=== PATIENT | female | born 1955 | race Caucasian/White ===

== ENCOUNTER → 2018-04-13 15:50 | Outpatient (CLI) | payer OTHER, SELFPAY ==
--- NOTE | 2018-04-13 16:00 | RAD_ITS ---
STUDY: X-RAY CHEST REASON FOR EXAM: Female, 62 years old. Shortness breath TECHNIQUE: Frontal and lateral views of the chest COMPARISON: None. FINDINGS: There are diffusely increased interstitial markings noted throughout the lungs which are of uncertain chronicity. There is airspace opacity in the right mid to lower lung field which is likely infectious in etiology. There are no pleural effusions. There is no pneumothorax. The heart is normal in size. The visualized osseous structures are within normal limits. RAD/Chest PA and Lateral IMPRESSION: Airspace opacity right mid to lower lung field which is likely infectious in etiology. Diffusely increased interstitial markings which are of uncertain chronicity. Electronically Signed: Cezar Zamora, at 16:56 EDT Tel , Service support ,
[2018-04-13 17:20] LABS: Absolute Lymphocyte Count 1.28 X10^3/ul (0.83-4.51); Absolute Neutrophil Count 3.4 X10^3/uL (2.0-7.7); Basophil# 0.02 X10^3/uL; Basophil% 0.4 % (0-1); Eosinophil# 0.16 X10^3/uL; Eosinophils% 3.1 % (0-5); Hematocrit 35.5 % (37-47); Hemoglobin 11.4 g/dl (12.0-15.0); Lymphocyte # 1.28 X10^3/ul (4.0); Lymphocyte % 24.8 % (19-41); Mean Corp Hgb Conc 32.1 g/gl (32-36); Mean Corpuscular Hgb 30.2 pg (27.0-32.0); Mean Corpuscular Volume 94.2 fL (81-99); Mean Platelet Vol. 10.8 fl (6.2-12.0); Monocyte# 0.29 X10^3/uL; Monocyte% 5.6 % (0-10); Neutrophil % 65.9 % (47-70); Platelet Count 307 K/mm3 (150-450); RBC Distribution Width CV 13.2 % (11.6-14.6); RBC Distribution Width SD 43.4 fl (35.1-43.9); Red Blood Count 3.77 M/mm3 (4.2-5.4); White Blood Count 5.2 K/mm3 (4.4-11.0)
[2018-04-13 17:25] LABS: POSITIVE COUNT NO; POSITIVE DIFFERENTIAL NO; POSITIVE MORPHOLOGY NO
[2018-04-13 17:33] LABS: BNP,B-Type NATRIURETIC PEPTIDE 1008.8 pg/mL (0-100)
[2018-04-13 17:54] LABS: BUN 9 mg/dL (7-18); Glucose 106 mg/dL (74-106)
[2018-04-13 17:55] LABS: Anion Gap 7 (5-15); BUN/Creat Ratio 12.9 RATIO (10-20); Calcium,Total 9.5 mg/dL (8.5-10.1); Chloride 107 mmol/L (98-107); EST Glomerular Filtration Rate 90 mL/min (>60); Est Glom Filt Rate - Afr Amer 109 mL/min (>60); Magnesium 1.9 mg/dL (1.6-2.6); Potassium 3.6 mmol/L (3.5-5.1); Sodium Level 141 mmol/L (136-145); T4 Total, Thyroxin 11.8 ug/dL (4.8-13.9); Thyroid Stim Hormone (TSH) 1.23 uIU/mL (0.358-3.74)
== END ==
PROVIDERS: Referring Provider Internal Medicine Cardiovascular Disease; Visit Provider Internal Medicine Cardiovascular Disease
DX: R06.02 Shortness of breath (principal); I05.9 Rheumatic mitral valve disease, unspecified
CPT/HCPCS: 36415; 71046; 80048; 83735; 83880; 84436; 84443; 85025

== ENCOUNTER → 2018-04-28 13:34 | Outpatient (CLI) | payer OTHER, SELFPAY ==
--- NOTE | 2018-04-28 13:38 | ECHOD_ITS ---
Reason For Study: Murmur Procedure This was a 2D Doppler, Color Flow transthoracic echocardiogram. Exam performed in department. Left Ventricle Normal LV size. The estimated ejection fraction is 30 %. Moderately severe global left ventricular systolic dysfunction. Stage 3 diastolic dysfunction. There is moderate to severe global hypokinesis of the left ventricle. Right Ventricle Normal RV size. Normal systolic function. Atria The left atrium is moderately enlarged. Normal right atrium. Mitral Valve Bileaflet diffuse mitral valve thickening. Mild (1+) eccentric mitral valve insufficiency. Tricuspid Valve Normal tricuspid valve. Mild (1+) tricuspid valve insufficiency. Pulmonary artery systolic pressure is 56 mmHg. Moderate pulmonary hypertension. Aortic Valve Trisinus/trileaflet aortic valve. Moderate focal aortic valve calcification. Peak aortic valve gradient 60 mmHg. Mean aortic valve gradient 32 mmHg. Moderately severe . Calculated aortic valve area (continuity equation) is 1.0 cm2. Mild (1+) eccentric aortic valve insufficiency. Pulmonic Valve Normal pulmonic valve. Great Vessels Normal aortic root. The pulmonary artery is normal size. Normal inferior vena cava. Pericardium/Pleural No pericardial effusion. MMode/2D Measurements & Calculations LVIDd: 6.2 cm IVSd: 1.8 cm LVOT diam: 2.0 cm LVIDs: 6.1 cm LVPWd: 1.4 cm LVOT area: 3.2 cm2 RVDd: 4.1 cm FS: 0.62 % Ao root diam: 3.7 cm LAV(MOD-bp): 88.8 ml LVAd ap4: 39.4 cm2 LA dimension: 4.4 cm LAV(MOD-bp) Indexed: 43.0 ml/m2 EDV(MOD-sp4): 167.9 ml LAV(MOD-sp2): 88.5 ml EDV(sp4-el): 169.7 ml LAV(MOD-sp4): 90.1 ml LVAs ap4: 32.7 cm2 ESV(MOD-sp4): 121.8 ml ESV(sp4-el): 122.8 ml EF(MOD-sp4): 27.5 % EF(sp4-el): 27.7 % SV(MOD-sp4): 46.1 ml SV(sp4-el): 46.9 ml LA A4 area: 26.0 cm2 RA A4 area: 15.7 cm2 Time Measurements MV dec time: 0.15 sec Doppler Measurements & Calculations MV E max alok: 101.4 cm/sec Lat Peak E' Alok: 3.8 cm/sec MV V2 max: 125.3 cm/sec MV A max alok: 74.6 cm/sec E/E' lat: 26.8 MV max P.3 mmHg MV E/A: 1.4 MV V2 mean: 71.4 cm/sec MV mean P.4 mmHg MV V2 VTI: 21.6 cm MVA(VTI): 4.0 cm2 MV P1/2t max alok: 125.3 cm/sec Ao V2 max: 389.9 cm/sec AI max alok: 336.5 cm/sec MV P1/2t: 46.3 msec Ao max P.9 mmHg AI max P.8 mmHg MV dec slope: 792.4 cm/sec2 Ao V2 mean: 263.8 cm/sec AI dec slope: 519.9 cm/sec2 MVA(P1/2t): 4.7 cm2 Ao mean P.3 mmHg AI P1/2t: 189.5 msec Ao V2 VTI: 85.5 cm IRAJ(I,D): 1.0 cm2 IRAJ(V,D): 0.97 cm2 LV V1 max: 117.9 cm/sec MR max alok: 456.3 cm/sec SV(LVOT): 86.3 ml LV V1 max P.6 mmHg MR max P.3 mmHg LV V1 mean P.8 mmHg LV V1 mean: 75.9 cm/sec LV V1 VTI: 27.0 cm PA V2 max: 71.0 cm/sec TR max alok: 361.7 cm/sec TR max P.3 mmHg Interpretation Summary Normal LV size. The estimated ejection fraction is 30 %. Moderately severe global left ventricular systolic dysfunction. Stage 3 diastolic dysfunction. The left atrium is moderately enlarged. Pulmonary artery systolic pressure is 56 mmHg. Moderate pulmonary hypertension. Mean aortic valve gradient 32 mmHg. Moderately severe Calculated aortic valve area (continuity equation) is 1.0 cm2. Ordering Physician: Toney White Referring Physician: Toney White Performed By: Wil Littlejohn [facility]
--- NOTE | 2018-04-28 14:33 | RAD_ITS ---
STUDY: X-RAY CHEST REASON FOR EXAM: Female, 62 years old. Chest pain/pressure TECHNIQUE: PA and lateral views of the chest. COMPARISON: 04/13/2018 FINDINGS: Lungs are expanded with chronic interstitial changes, previously described patchy opacifications in both lung hutchinson have mildly improved but not yet resolved. Continued follow-up recommended to assure complete resolution. There is no demonstrated pleural abnormality. Normal size heart. Normal mediastinum and estephanie. Normal visualized pulmonary arteries. Normal visualized aortic arch and descending thoracic aorta. Normal visualized thoracic spine. Normal visualized ribs, clavicles, and shoulders. There is no demonstrated abnormality of the visualized soft tissue structures of the upper abdomen. RAD/Chest PA and Lateral IMPRESSION: Partial but not yet complete resolution of previously described patchy opacifications in both lung hutchinson. Follow-up recommended to assure complete resolution Electronically Signed: Prasanth Carlos MD at 19:40 EDT , Service support ,
== END ==
PROVIDERS: Referring Provider Internal Medicine Cardiovascular Disease; Visit Provider Internal Medicine Cardiovascular Disease
DX: I35.9 Nonrheumatic aortic valve disorder, unspecified (principal); I05.9 Rheumatic mitral valve disease, unspecified; R06.02 Shortness of breath
CPT/HCPCS: 71046; 93306

== ENCOUNTER → 2018-05-05 11:54 | Outpatient (CLI) | payer OTHER, SELFPAY ==
[2018-05-05 13:44] LABS: Anion Gap 8 (5-15); BUN 17 mg/dL (7-18); BUN/Creat Ratio 20.5 RATIO (10-20); Calcium,Total 9.3 mg/dL (8.5-10.1); Chloride 106 mmol/L (98-107); Creatinine, Serum 0.83 mg/dL (0.55-1.02); EST Glomerular Filtration Rate 74 mL/min (>60); Est Glom Filt Rate - Afr Amer 89 mL/min (>60); Glucose 93 mg/dL (74-106); Potassium 3.9 mmol/L (3.5-5.1); Sodium Level 141 mmol/L (136-145)
== END ==
PROVIDERS: Referring Provider Internal Medicine Cardiovascular Disease; Visit Provider Internal Medicine Cardiovascular Disease
DX: I50.40 Unspecified combined systolic (congestive) and diastolic (congestive) heart failure (principal); I35.0 Nonrheumatic aortic (valve) stenosis
CPT/HCPCS: 36415; 80048

== ENCOUNTER 2018-05-09 08:51 | Day surgery (SDC) | payer OTHER, SELFPAY ==
[2018-05-06 09:46] VITALS: BMI 31.3
[2018-05-09 10:56] LABS: Blood Gas Specimen Type VEN; VBG BASE EXCESS -1 mmol/L (-1.0-3.5); VBG Bicarbonate 23 mmol/L (22-26); VBG Oxygen Content 24 mmol/L (23-33); VBG PO2 33 mmHg (25-40); VBG SO2 66 % (50-70); VBG pCO2 34.5 mmHg (41-51); VBG pH 7.43 (7.32-7.42)
[2018-05-09 10:56] LABS: Base Excess -3 mmol/L (-2 to +2); Bicarbonate 21.5 mmol/L (22-26); Blood Gas Specimen Type ART; PO2 62 mmHG (75-100); SO2 92 % (95-99); Total Carbon Dioxide 23 mmol/L; pCO2 32.2 mmHg (35-45); pH 7.43 (7.35-7.45)
[2018-05-09 10:56] LABS: Blood Gas Specimen Type VEN; VBG BASE EXCESS 0 mmol/L (-1.0-3.5); VBG Bicarbonate 24 mmol/L (22-26); VBG Oxygen Content 25 mmol/L (23-33); VBG PO2 33 mmHg (25-40); VBG SO2 65 % (50-70); VBG pCO2 35.8 mmHg (41-51); VBG pH 7.44 (7.32-7.42)
--- NOTE | 2018-05-09 10:59 | CL.D_ITS ---
Patient Name: TONIO PONCE Study Date: 05/09/2018 Performing: Toney White MD Ht: 68.11 inches 173 cm : 1955 Wt: 205.03 lbs 93 kg Age: 62 Gender: female BSA: 2.07 PROCEDURE(S) PERFORMED [id number]/LHC/COR/LV CLINICAL PROFILE AND INDICATIONS Indications: Valvular Disease Heart Failure: NYHA Class: 2 Stress/Imaging Stress/Image Study Performed: No CAD Presentations: Symptom unlikely to be ischemic. CONCLUSIONS Aortic valve peak to peak gradient is 90 mmHg. Mean grdaient of 50 mmhg; IRAJ 0.84cm^: moderate pulmon dee hypertension RECOMMENDATIONS Surgery consult for Valve Replacement surgery DESCRIPTION OF PROCEDURE The patient arrived to the procedure lab. The risks and benefits of the procedure as well as a full d escription of our services here and current unavailability of surgical backup were fully explained to the patient and/or their significant other prior to the catheterization. The Timeout was completed, verifying the correct patient and procedure. The patient's procedural site was prepped and draped in the usual fashion. Local anesthetic was given subcutaneously to right radial region with Lidocaine 2% . Using a modified Seldinger technique, arterial access was obtained via the right radial artery, a 6 Fr sheath was inserted. Venous access was obtained via the left brachiocephalic vein, a 7Fr sheath wa s inserted. A 7Fr thermal dilution catheter was inserted and right heart pressures were recorded, it was then advanced to PA position for cardiac outputs. Thermal dilution cardiac outputs were then rosa elena rded. The Thermal dilution catheter was then removed. Left Coronary Artery selective angiography was performed in multiple views using a 5 Fr. 4.0 Cleveland catheter. Right Coronary Artery s elective angiography was then performed in multiple views using a 5 Fr. 4.0 [place] catheter. Left Vent riculography was performed in MCCALLUM projection using a 5 Fr. Pigtail catheter. LV to AO pullback pressu res were then recorded.The arterial sheath was pulled and a TR Band was applied for hemostasis 15 cc' s of air in band. The venous sheath was then pulled and manual compression applied until hemostasis a chieved CORONARY ANGIOGRAPHY DOMINANCE: Right Dominant LEFT HEART ASSESSMENT Left Ventricular Ejection Fraction: by LV Gram 35 % Depressed Left Ventricular systolic function RIGHT HEART ASSESSMENT Thermal CO: 6.21 Thermal CI: 3 Bertha CO: 6.83 Bertha CI: 3.3 PW: 24/32 21 PA: 51/22 34 RV: 50/-1 6 RA: 7/2 2 PVR: 167 SVR: 928 Aortic Valve Area: 0.84 Aortic Valve Index: 0.41 Aortic Valve Mean Gradient: 50.9 Right Heart pressures - elevated Aortic valve peak to peak gradient is 90 mmHg. LEFT MAIN: Angiographically normal LEFT ANTERIOR DECENDING ARTERY: Angiographically normal CIRCUMFLEX ARTERY: Angiographically normal RIGHT CORONARY ARTERY: Angiographically normal VALVE FINDINGS: Aortic Valve Calcification - severe AORTIC ROOT: Dilated COMPLICATIONS No Complications PROCEDURE MEDICATIONS Versed 1 mg IV Fentanyl 50 mcg IV Oxygen: 2 L/min via nasal cannula Lasix 20 mg IV 05/09/2018 10:50:54 SUMMARY OF HEMODYNAMIC DATA Time AIR REST ECG 09:17:02 ECG 09:45:26 PA 51/22 (34) PA 10:19:31 PW 24/32 (21) PV 10:19:58 PA 54/19 (35) 10:23:51 RV 50/-1, 6 10:24:09 RA 7/2 (2) SV 10:24:21 AO 97/56 (74) SA 10:28:33 LV 191/8, 33 10:36:38 LV 180/7, 30 10:36:45 LV 186/17, 31 10:38:19 LV 185/17, 28 10:38:25 LVp 185/14, 36 10:38:44 AOp 99/55 (74) 10:38:49 RM AIR REST 10:52:50 Valve Area (c P-P/ms Time AIR REST Aortic 0.84 50.9 mn/338 ms86.0 pk/338 ms 10:38:44 Aortic 0.84 50.9 mn/338 ms86.0 pk/338 ms 10:38:44 Type SV CO (l/m) CI (l/m/ HR Time AIR REST Thermal 345.00 6.21 3.00 18 09:17:02 Bertha 379.40 6.83 3.30 18 09:17:02 Label % O2 Pres/Loc Time AIR REST AO 92 PV 10:39:13 RA 66 SV 10:39:21 PA 65 PA 10:39:28 Signed By Toney White MD On 05/09/2018 10:59:04 Toney White MD
== END 2018-05-09 14:20 | disposition home or self-care (01) ==
PROVIDERS: Referring Provider Internal Medicine Cardiovascular Disease; Visit Provider Internal Medicine Cardiovascular Disease
DX: I35.0 Nonrheumatic aortic (valve) stenosis (principal); I50.40 Unspecified combined systolic (congestive) and diastolic (congestive) heart failure; I43 Cardiomyopathy in diseases classified elsewhere; I34.0 Nonrheumatic mitral (valve) insufficiency; I27.21 Secondary pulmonary arterial hypertension; I49.3 Ventricular premature depolarization; E66.9 Obesity, unspecified; Z68.31 Body mass index [BMI] 31.0-31.9, adult
CPT/HCPCS: 82803; 93460; 99152; 99153; J7040; Q9967; C1751; C1769; C1894; J1940

== ENCOUNTER → 2018-06-02 09:15 | Outpatient (CLI) | payer OTHER, SELFPAY ==
[2018-06-02 10:06] LABS: Anion Gap 8 (5-15); BUN 13 mg/dL (7-18); BUN/Creat Ratio 15.1 RATIO (10-20); Calcium,Total 9.2 mg/dL (8.5-10.1); Chloride 108 mmol/L (98-107); Creatinine, Serum 0.86 mg/dL (0.55-1.02); EST Glomerular Filtration Rate 70 mL/min (>60); Est Glom Filt Rate - Afr Amer 85 mL/min (>60); Glucose 91 mg/dL (74-106); Potassium 3.9 mmol/L (3.5-5.1); Sodium Level 143 mmol/L (136-145)
== END ==
DX: I50.42 Chronic combined systolic (congestive) and diastolic (congestive) heart failure (principal); I35.0 Nonrheumatic aortic (valve) stenosis
CPT/HCPCS: 36415; 80048

== ENCOUNTER → 2018-10-27 07:07 | Outpatient (CLI) | payer OTHER, SELFPAY ==
[2018-08-22 10:26] VITALS: BMI 29.0
--- NOTE | 2018-10-27 08:28 | CT_ITS ---
STUDY: CT CHEST WITHOUT CONTRAST REASON FOR EXAM: Female, 63 years old. Abnormal chest x-ray, bilateral patchy opacifications RADIATION DOSAGE (If Supplied By Facility): CTDIvol = ( 8.86 ) mGy, DLP = ( 347.66 ) mGycm TECHNIQUE: Transaxial imaging was performed without the administration of intravenous contrast material. Individualized dose optimization techniques were used for this CT. COMPARISON: Chest x-ray 04/28/2018 FINDINGS: Median sternotomy wires. Small hiatal hernia. Diffuse pulmonary fibrosis, most extensive in the lung peripheries. No acute alveolar disease. No pulmonary nodules. There is no demonstrated pleural abnormality. Normal heart and pericardium. Normal mediastinum. Normal hilar regions. Normal unenhanced pulmonary arteries. Normal aorta arch and descending thoracic aorta. Prosthetic aortic valve. Postoperative changes of the ascending thoracic aorta. Normal osseous structures. There is no demonstrated abnormality of the visualized upper abdomen. CT/Chest without Contrast IMPRESSION: Diffuse pulmonary fibrosis, most extensive in the lung peripheries. No acute alveolar disease. No pulmonary nodules. Small hiatal hernia. Electronically Signed: Vinay Alvarez MD at 16:55 EDT Tel , Service support ,
--- NOTE | 2018-10-27 14:45 | PFTCOMP ---
COMPLETE PULMONARY FUNCTION TEST INTERPRETATION Brief HPI: Patient is a 63 year old female, currently under the care of myself, who presents to [facility] for complete pulmonary function tests secondary to diagnosis of abnormal chest imaging. Respiratory therapist reports good effort and reproducible results. Interpretation: Forced expiration spirometry shows no large airways obstructive ventilatory defect with an FEV1 of 116% predicted. There is no significant bronchodilator response by strict ATS criteria. Spirograms are of good quality and plateau normally. The respiratory flow volume loop shows a normal pattern. Lung volumes by body plethysmography show a normal total lung capacity at 5.4 L, 95% predicted. All other lung volumes are within normal limits. Diffusion capacity by carbon monoxide is decreased at 44% predicted. The airway resistance is normal. No previous pulmonary function tests were available for review. Impression: Isolated reduction diffusion capacity consistent with a pulmonary vascular disorder.
== END ==
PROVIDERS: Referring Provider Internal Medicine Critical Care Medicine; Visit Provider Internal Medicine Critical Care Medicine
DX: R93.89 Abnormal findings on diagnostic imaging of other specified body structures (principal)
CPT/HCPCS: 71250; 94060; 94726; 94729

== ENCOUNTER → 2018-10-31 09:02 | Outpatient (CLI) | payer OTHER, SELFPAY ==
[2018-08-22 10:26] VITALS: BMI 29.0
[2018-10-31 09:46] VITALS: PULSE 62; PULSE 64; PULSE 68; PULSE 71; PULSE 78; PULSE 79; O2SAT 91; O2SAT 92; O2SAT 93; O2SAT 95; O2SAT 96; O2SAT 99
--- NOTE | 2018-10-31 12:10 | PCM.PSN.6M ---
PSN 6 Minute Walk Test - 6 Minute Walk Test 6 Minute Walk Test: 6 Minute Walk Test PSN:6-Minute Walk Test Start: 10/31/18 09:44 Freq: Status: Active Protocol: RESP.6MINW Document 10/31/18 09:46 ANGEL (Rec: 10/31/18 09:48 ANGEL [id number]) 6 Minute Walk Test Date Performed 10/31/18 Time Performed 09:00 Height 5 ft 8 in Weight: 190 lb Weight in Pounds 190.[address]: Van Bolanos Assistive device used: None Pre-test Oxygen Delivery Method Room Air Pulse Ox (%) 99 Pulse Rate (60-100 beats/min) 62 Dyspnea Phuc Scale (0-10) 0 Exertion Phuc Scale (6-20) 6 1st minute Oxygen Delivery Method Room Air Pulse Ox (%) 96 Pulse Rate (60-100 beats/min) 68 2nd minute Oxygen Delivery Method Room Air Pulse Ox (%) 95 Pulse Rate (60-100 beats/min) 71 3rd minute Oxygen Delivery Method Room Air Pulse Ox (%) 93 Pulse Rate (60-100 beats/min) 78 4th minute Oxygen Delivery Method Room Air Pulse Ox (%) 93 Pulse Rate (60-100 beats/min) 79 5th minute Oxygen Delivery Method Room Air Pulse Ox (%) 91 Pulse Rate (60-100 beats/min) 79 6th minute Oxygen Delivery Method Room Air Pulse Ox (%) 92 Pulse Rate (60-100 beats/min) 79 Dyspnea Phuc Scale (0-10) 0 Exertion Phuc Scale (6-20) 11 Post-test Oxygen Delivery Method Room Air Pulse Ox (%) 96 Pulse Rate (60-100 beats/min) 64 Full Laps Walked 21 Partial Lap, Number of Tiles Walked 5 Total Distance Walked (ft) 1244 - Interpretation Interpretation: The patient ambulated 1244 feet over the course of 6 minutes beginning on room air without assistive devices or breaks. Pretesting oxygen saturation was noted to be 99% on room air. With ambulation, the martin oxygen saturation was 91%. This represents a significant exertional oxygen desaturation. - Recommendations Recommendations: There is no indication for the use of supplemental oxygen at this time. However, close interval follow-up is recommended, given the degree of oxygen desaturation noted during this study.
== END ==
PROVIDERS: Referring Provider Internal Medicine Critical Care Medicine; Visit Provider Internal Medicine Critical Care Medicine
DX: R93.89 Abnormal findings on diagnostic imaging of other specified body structures (principal)
CPT/HCPCS: 94618

== ENCOUNTER → 2019-04-28 06:48 | Outpatient (CLI) | payer OTHER, SELFPAY ==
[2018-11-14 10:45] VITALS: BMI 29.0
[2018-12-13 09:09] VITALS: BMI 29.3
--- NOTE | 2019-04-29 06:57 | PFTCOMP ---
COMPLETE PULMONARY FUNCTION TEST INTERPRETATION Brief HPI: Patient is a 63 year old female, currently under the care of myself, who presents to [facility] for complete pulmonary function tests secondary to diagnosis of pulmonary fibrosis. Respiratory therapist reports good effort and reproducible results. Interpretation: Forced expiration spirometry shows no large airways obstructive ventilatory defect with an FEV1 of 133% predicted. There is no significant bronchodilator response by strict ATS criteria. Spirograms are of good quality and plateau normally. The respiratory flow volume loop shows a normal pattern. Lung volumes by body plethysmography show a normal total lung capacity at 5.38 L, 95% predicted. All other lung volumes are within normal limits. Diffusion capacity by carbon monoxide is decreased at 62% predicted. The airway resistance is normal. Compared to previous pulmonary function tests from 10/27/2018, there is been a significant improvement in FVC, FEV1 and DLCO by 13%, 12% and 45% respectively. Impression: Isolated reduction in diffusion capacity consistent with a pulmonary vascular disorder. There has been significant improvements compared to previous testing.
== END ==
PROVIDERS: Referring Provider Internal Medicine Critical Care Medicine; Visit Provider Internal Medicine Critical Care Medicine
DX: I27.21 Secondary pulmonary arterial hypertension (principal); J84.10 Pulmonary fibrosis, unspecified
CPT/HCPCS: 94060; 94726; 94729

== ENCOUNTER → 2019-05-01 08:49 | Outpatient (CLI) | payer OTHER, SELFPAY ==
[2018-11-14 10:45] VITALS: BMI 29.0
[2018-12-13 09:09] VITALS: BMI 29.3
[2019-05-01 09:00] VITALS: PULSE 53; PULSE 57; PULSE 58; PULSE 59; PULSE 62; PULSE 66; PULSE 69; PULSE 70; O2SAT 90; O2SAT 93; O2SAT 94; O2SAT 96; O2SAT 98; O2SAT 99
--- NOTE | 2019-05-02 07:17 | WT_ITS ---
PSN 6 Minute Walk Test - 6 Minute Walk Test 6 Minute Walk Test: 6 Minute Walk Test PSN:6-Minute Walk Test Start: 05/01/19 09:29 Freq: Status: Active Protocol: RESP.6MINW Document 05/01/19 09:00 [facility] (Rec: 05/01/19 09:37 [facility] [id number]) 6 Minute Walk Test Date Performed 05/01/19 Time Performed 09:00 Height 5 ft 8 in Weight: 200 lb Weight in Pounds 200.[address]: Dr Bolanos Assistive device used: None Pre-test Oxygen Delivery Method Room Air Pulse Ox (%) 99 Pulse Rate (60-100 beats/min) 53 L Dyspnea Phuc Scale (0-10) 0 Exertion Phuc Scale (6-20) 6 1st minute Oxygen Delivery Method Room Air Pulse Ox (%) 98 Pulse Rate (60-100 beats/min) 57 L 2nd minute Oxygen Delivery Method Room Air Pulse Ox (%) 96 Pulse Rate (60-100 beats/min) 59 L 3rd minute Oxygen Delivery Method Room Air Pulse Ox (%) 94 Pulse Rate (60-100 beats/min) 62 4th minute Oxygen Delivery Method Room Air Pulse Ox (%) 90 Pulse Rate (60-100 beats/min) 66 5th minute Oxygen Delivery Method Room Air Pulse Ox (%) 93 Pulse Rate (60-100 beats/min) 69 6th minute Oxygen Delivery Method Room Air Pulse Ox (%) 96 Pulse Rate (60-100 beats/min) 70 Dyspnea Phuc Scale (0-10) 0 Exertion Phuc Scale (6-20) 11 Post-test Oxygen Delivery Method Room Air Pulse Ox (%) 99 Pulse Rate (60-100 beats/min) 58 L Full Laps Walked 21 Partial Lap, Number of Tiles Walked 4 Total Distance Walked (ft) 1243 - Interpretation Interpretation: The patient ambulated 1243 feet over the course of 6 minutes beginning on room air without assistive devices or breaks. Pretesting oxygen saturation was noted to be 99% on room air. With ambulation, the martin oxygen saturation was 90%. This represents a significant exertional oxygen desaturation. - Recommendations Recommendations: There is no indication for the use of supplemental oxygen at this time. However, close interval follow-up is recommended, given the degree of oxygen desaturation noted during this study.
== END ==
PROVIDERS: Referring Provider Internal Medicine Critical Care Medicine; Visit Provider Internal Medicine Critical Care Medicine
DX: J84.10 Pulmonary fibrosis, unspecified (principal); I27.21 Secondary pulmonary arterial hypertension
CPT/HCPCS: 94618

== ENCOUNTER → 2019-05-29 10:39 | Outpatient (CLI) | payer OTHER, SELFPAY ==
[2018-12-13 09:09] VITALS: BMI 29.3
[2019-05-04 09:41] VITALS: BMI 31.7
--- NOTE | 2019-05-29 10:40 | ECHOD_ITS ---
Version 2 Reason For Study: AVR Procedure This was a 2D Doppler, Color Flow transthoracic echocardiogram. Exam performed in department. Left Ventricle Normal LV size. Left ventricular systolic function is normal. The estimated ejection fraction is 55 %. No regional wall motion abnormalities noted. Right Ventricle Normal RV size. Normal systolic function. Atria The left atrium is mildly enlarged. Normal right atrium. Mitral Valve Bileaflet diffuse mitral valve thickening. Tricuspid Valve Normal tricuspid valve. Mild tricuspid valve insufficiency. Pulmonary artery systolic pressure is 24 mmHg. Aortic Valve Peak aortic valve gradient 14 mmHg. Mean aortic valve gradient 7 mmHg. Mild (1+) aortic valve insufficiency. Bioprosthetic aortic valve. Pulmonic Valve Normal pulmonic valve. Great Vessels Mild to moderately dilated aortic root. The pulmonary artery is normal size. Normal inferior vena cava. Pericardium/Pleural No pericardial effusion. MMode/2D Measurements & Calculations LVIDd: 5.5 cm IVSd: 0.92 cm LVOT diam: 2.0 cm LVIDs: 3.8 cm LVPWd: 0.98 cm LVOT area: 3.0 cm2 RVDd: 4.0 cm FS: 31.6 % Ao root diam: 4.5 cm LAV(MOD-bp): 69.6 ml LA A4 area: 21.9 cm2 LAV(MOD-bp) Indexed: 33.7 ml/m2 LAV(MOD-sp2): 67.5 ml LAV(MOD-sp4): 71.6 ml LA dimension(2D): 4.0 cm RA A4 area: 19.4 cm2 Time Measurements MV dec time: 0.35 sec Doppler Measurements & Calculations MV E max alok: 78.2 cm/sec Lat Peak E' Alok: 9.4 cm/sec Med Peak E' Alok: 3.4 cm/sec MV A max alok: 104.3 cm/sec E/E' lat: 8.4 E/E' med: 22.9 MV E/A: 0.75 Ao V2 max: 184.6 cm/sec LV V1 max: 108.0 cm/sec SV(LVOT): 77.4 ml Ao max P.6 mmHg LV V1 max P.7 mmHg Ao V2 mean: 126.5 cm/sec LV V1 mean P.6 mmHg Ao mean P.2 mmHg LV V1 mean: 75.7 cm/sec Ao V2 VTI: 46.0 cm LV V1 VTI: 25.6 cm IRAJ(I,D): 1.7 cm2 IRAJ(V,D): 1.8 cm2 PA V2 max: 78.8 cm/sec TR max alok: 229.2 cm/sec TR max P.4 mmHg Interpretation Summary Normal LV size. Left ventricular systolic function is normal. The estimated ejection fraction is 55 %. Bioprosthetic aortic valve. Mean aortic valve gradient 7 mmHg. Mild to moderately dilated aortic root. Ordering Physician: Toney White Referring Physician: Toney White Performed By: Ramila Griffith, RDOPAL, RVT
== END ==
PROVIDERS: Referring Provider Internal Medicine Cardiovascular Disease; Visit Provider Internal Medicine Cardiovascular Disease
DX: Z95.2 Presence of prosthetic heart valve (principal)
CPT/HCPCS: 93306

== ENCOUNTER → 2021-09-04 10:18 | Outpatient (CLI) | payer OTHER, MEDICARE, SELFPAY ==
[2021-09-04 12:04] LABS: Anion Gap 3 (5-15); BUN 13 mg/dL (7-18); Chloride 106 mmol/L (98-107); Creatinine, Serum 0.87 mg/dL (0.55-1.02); EST Glomerular Filtration Rate 69 mL/min (>60); Est Glom Filt Rate - Afr Amer 84 mL/min (>60); Glucose 104 mg/dL (74-106); Potassium 4.3 mmol/L (3.5-5.1); Sodium Level 138 mmol/L (136-145)
== END ==
PROVIDERS: Referring Provider Internal Medicine Cardiovascular Disease; Visit Provider Internal Medicine Cardiovascular Disease
DX: I71.2 Thoracic aortic aneurysm, without rupture (principal)
CPT/HCPCS: 36415; 80048

== ENCOUNTER 2021-09-17 07:55 | Outpatient (CLI) | payer MEDICARE, SELFPAY ==
--- NOTE | 2021-09-17 07:56 | CT_ITS ---
STUDY: CTA CHEST REASON FOR EXAM: Female, 66 years old. Thoracic aortic aneurysm. RADIATION DOSAGE (If Supplied By Facility): CTDIvol = ( 16.63 ) mGy, DLP = ( 682.97 ) mGycm TECHNIQUE: The examination was performed with the intravenous administration of IV 100mL Isovue-370. Post-processing of the angiographic images was performed, with multiplanar reformation and 3D reconstruction. Individualized dose optimization techniques were used for this CT. COMPARISON: CT of the chest, 10/27/2018. FINDINGS: Normal enhancement of the main pulmonary artery and right and left pulmonary arteries. Normal enhancement of the bilateral peripheral pulmonary arteries. There is no demonstrated pulmonary embolism. There is dilatation of the ascending thoracic aorta measuring 5.5 x 4.5 cm at the level of the right pulmonary artery. This has a markedly thickened wall with a patent lumen measuring 3.5 x 3.0 cm there is mild atherosclerotic changes of the arch. There is evidence of aortic valve replacement There is no demonstrated aortic dissection. Normal heart and pericardium. Normal mediastinum. Normal hilar regions. Normal visualized trachea and bronchi. The lungs are hyper expanded, with flattening of the hemidiaphragms. Is diffuse emphysematous changes throughout the lungs without acute infiltrate or mass. Normal pleura. Evidence of median sternotomy. The chest wall is otherwise unremarkable. There are degenerative changes of thoracic spine. Small hiatal hernia. The upper abdomen is otherwise unremarkable. CT/CTA Chest W/WO Contrast IMPRESSION: 1. No evidence of pulmonary embolus. 2. Postoperative changes of the aortic valve and ascending aorta without significant interval change. 3. Diffuse emphysematous changes of the lungs unchanged from prior exam. Electronically Signed: Omar Zurita DO at 22:55 EDT Reading Location ID and State: [address] [place] [address] Tel [phone], Service support ,
== END 2021-09-17 23:59 | disposition home or self-care (01) ==
LOC: CT 07:56
PROVIDERS: Visit Provider Internal Medicine Cardiovascular Disease
DX: I71.2 Thoracic aortic aneurysm, without rupture (principal)
CPT/HCPCS: 71275; Q9967

== ENCOUNTER 2021-09-18 13:35 | Outpatient (CLI) | payer MEDICARE, SELFPAY ==
--- NOTE | 2021-09-18 13:38 | ECHOD_ITS ---
Reason For Study: VALVE REPLACEMENT EVAL Procedure This was a 2D Doppler, Color Flow transthoracic echocardiogram. Exam performed in department. Left Ventricle Normal LV size. Left ventricular systolic function is normal. The estimated ejection fraction is 55 %. Stage 2 diastolic dysfunction. No regional wall motion abnormalities noted. Right Ventricle Normal RV size. Normal systolic function. Atria The left atrium is moderately enlarged. Normal right atrium. Mitral Valve Normal mitral valve. Tricuspid Valve Normal tricuspid valve. Mild (1+) tricuspid valve insufficiency. Pulmonary artery systolic pressure is 30 mmHg. Aortic Valve Peak aortic valve gradient 13.5 mmHg. Mean aortic valve gradient 7 mmHg. Stable appearing bioprosthetic aortic valve apparatus. Great Vessels Mildly dilated aortic root. The pulmonary artery is normal size. Normal inferior vena cava. Pericardium/Pleural No pericardial effusion. MMode/2D Measurements & Calculations LVIDd: 5.5 cm IVSd: 0.99 cm LVOT diam: 2.0 cm LVIDs: 4.1 cm LVPWd: 1.3 cm LVOT area: 3.3 cm2 RVDd: 3.6 cm FS: 26.2 % Ao root diam: 4.0 cm LAV(MOD-bp): 86.9 ml LA A4 area: 25.3 cm2 LAV(MOD-bp) Indexed: 39.8 ml/m2 LAV(MOD-sp2): 85.3 ml LAV(MOD-sp4): 85.8 ml LA dimension(2D): 4.6 cm RA A4 area: 18.1 cm2 Time Measurements MV dec time: 0.14 sec Doppler Measurements & Calculations MV E max alok: 122.8 cm/sec Lat Peak E' Alok: 10.6 cm/sec Med Peak E' Alok: 5.6 cm/sec MV A max alok: 110.1 cm/sec E/E' lat: 11.6 E/E' med: 22.1 MV E/A: 1.1 Ao V2 max: 183.8 cm/sec LV V1 max: 121.8 cm/sec SV(LVOT): 98.5 ml Ao max P.5 mmHg LV V1 max P.9 mmHg Ao V2 mean: 122.3 cm/sec LV V1 mean P.4 mmHg Ao mean P.7 mmHg LV V1 mean: 88.1 cm/sec Ao V2 VTI: 43.0 cm LV V1 VTI: 30.3 cm IRAJ(I,D): 2.3 cm2 IRAJ(V,D): 2.2 cm2 PA V2 max: 77.0 cm/sec TR max alok: 259.9 cm/sec TR max P.0 mmHg ECHO/Echo Complete Interpretation Summary Normal LV size. Left ventricular systolic function is normal. The estimated ejection fraction is 55 %. Stage 2 diastolic dysfunction. Stable appearing bioprosthetic aortic valve apparatus. Peak aortic valve gradient 13.5 mmHg. Mean aortic valve gradient 7 mmHg. Pulmonary artery systolic pressure is 30 mmHg. Compared to the previous the above is essentially unchanged Ordering Physician: Toney White Referring Physician: Bry Barnett Performed By: Meme Bain, EDNA, RVT
== END 2021-09-18 23:59 | disposition home or self-care (01) ==
LOC: CVS 13:36
PROVIDERS: Referring Provider Internal Medicine Cardiovascular Disease; Visit Provider Internal Medicine Cardiovascular Disease
DX: I49.3 Ventricular premature depolarization (principal)
CPT/HCPCS: 93306

== ENCOUNTER → 2022-11-24 | Outpatient (CLI) | payer MEDICARE, SELFPAY ==
[2022-11-24 15:32] LABS: Anion Gap 6 (5-15); BUN 14 mg/dL (7-18); BUN/Creat Ratio 15.6 RATIO (10-20); Calcium,Total 9.4 mg/dL (8.5-10.1); Chloride 107 mmol/L (98-107); EST Glomerular Filtration Rate 66 mL/min (>60); Est Glom Filt Rate - Afr Amer 80 mL/min (>60); Glucose 87 mg/dL (74-106); Potassium 4.4 mmol/L (3.5-5.1); Sodium Level 139 mmol/L (136-145)
== END | disposition home or self-care (01) ==
LOC: LAB 09:39
PROVIDERS: Referring Provider Nurse Practitioner Family; Visit Provider Nurse Practitioner Family
DX: I77.810 Thoracic aortic ectasia (principal); Z95.2 Presence of prosthetic heart valve; Z98.890 Other specified postprocedural states; Z86.79 Personal history of other diseases of the circulatory system
CPT/HCPCS: 80048

== ENCOUNTER → 2024-01-31 | Outpatient (CLI) | payer MEDICARE, SELFPAY ==
--- NOTE | 2024-01-31 10:50 | ECHOD_ITS ---
Reason For Study: AORTIC VALVE REPLACEMENTS Procedure This was a 2D Doppler, Color Flow transthoracic echocardiogram. Exam performed in department. Left Ventricle Normal LV size. Left ventricular systolic function is normal. The left ventricular ejection fraction is 55 %. Stage 1 diastolic dysfunction. No regional wall motion abnormalities noted. Right Ventricle Normal RV size. Normal systolic function. Atria The left atrium is mildly enlarged. Normal right atrium. Mitral Valve Bileaflet diffuse mitral valve thickening. Mild (1+) eccentric mitral valve insufficiency. Tricuspid Valve Normal tricuspid valve. Mild (1+) tricuspid valve insufficiency. Pulmonary artery systolic pressure is 32 mmHg. Aortic Valve Peak aortic valve gradient 8 mmHg. Mean aortic valve gradient 5 mmHg. Bioprosthetic aortic valve. Pulmonic Valve Normal pulmonic valve. Great Vessels Normal aortic root. The pulmonary artery is normal size. Inferior vena cava collapse with respiration. Pericardium/Pleural No pericardial effusion. MMode/2D Measurements & Calculations LVIDd: 4.5 cm IVSd: 1.5 cm LVOT diam: 1.9 cm LVIDs: 3.2 cm LVPWd: 1.2 cm LVOT area: 2.8 cm2 RVDd: 3.6 cm FS: 29.9 % Ao root diam: 3.3 cm LAV(MOD-bp): 84.9 ml LVAd ap4: 27.4 cm2 LAV(MOD-bp) Indexed: 39.1 ml/m2 LVLd ap4: 7.5 cm LAV(MOD-sp2): 79.2 ml EDV(MOD-sp4): 82.2 ml LAV(MOD-sp4): 88.5 ml EDV(sp4-el): 84.4 ml LVAs ap4: 17.7 cm2 LVLs ap4: 6.7 cm ESV(MOD-sp4): 41.7 ml ESV(sp4-el): 39.8 ml EF(MOD-sp4): 49.2 % EF(sp4-el): 52.8 % LVAd ap2: 25.0 cm2 SV(MOD-sp4): 40.4 ml SV(MOD-sp2): 34.5 ml LVLd ap2: 7.9 cm EDV(MOD-sp2): 64.2 ml EDV(sp2-el): 67.0 ml LVAs ap2: 15.3 cm2 LVLs ap2: 6.5 cm ESV(MOD-sp2): 29.7 ml ESV(sp2-el): 30.5 ml EF(MOD-sp2): 53.8 % SV(sp4-el): 44.6 ml LA dimension(2D): 4.6 cm LA A4 area: 25.9 cm2 RA A4 area: 16.9 cm2 TAPSE: 1.3 cm Time Measurements MV dec time: 0.15 sec Doppler Measurements & Calculations MV E max alok: 95.5 cm/sec Lat Peak E' Alok: 11.4 cm/sec Med Peak E' Alok: 4.9 cm/sec MV A max alok: 114.6 cm/sec E/E' lat: 8.4 E/E' med: 19.4 MV E/A: 0.83 Ao V2 max: 145.9 cm/sec LV V1 max: 110.2 cm/sec MV dec slope: 636.8 cm/sec2 Ao max P.5 mmHg LV V1 max P.9 mmHg Ao V2 mean: 109.9 cm/sec LV V1 mean P.6 mmHg Ao mean P.2 mmHg LV V1 mean: 76.1 cm/sec Ao V2 VTI: 32.9 cm LV V1 VTI: 23.5 cm AV (velocity ratio): 0.71 IRAJ(I,D): 2.0 cm2 IRAJ(V,D): 2.1 cm2 SV(LVOT): 65.3 ml PA V2 max: 75.7 cm/sec TR max alok: 266.5 cm/sec PA max PG (full): 1.0 mmHg TR max P.4 mmHg ECHO/Echo Complete Interpretation Summary Normal LV size. Left ventricular systolic function is normal. The left ventricular ejection fraction is 55 %. Stage 1 diastolic dysfunction. Bioprosthetic aortic valve. Mean aortic valve gradient 5 mmHg. Ordering Physician: Toney White Referring Physician: Toney White MD Performed By: Shirley Rodriguez RDCS
== END | disposition home or self-care (01) ==
PROVIDERS: Referring Provider Internal Medicine Cardiovascular Disease; Visit Provider Internal Medicine Cardiovascular Disease
DX: Z95.2 Presence of prosthetic heart valve (principal)
CPT/HCPCS: 93306